=== PATIENT | female | born 2005 | race Caucasian/White ===

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

== ENCOUNTER 2025-03-10 08:45 | Outpatient (CLI) | payer OTHER, SELFPAY ==
--- NOTE | ~2025-03-10 | CT_ITS ---
CT Scan of the Chest without Contrast: Clinical Indication: Pulmonary nodule Technique: Contiguous sections were acquired throughout the chest without intravenous contrast. Dose reduction technique was used on this scan by utilizing automated exposure control and iterative recon struction technique. The dose-length product (DLP) was 216.79 mGy-cm. COMPARISON: 05/17/2024 Findings: Anterior mediastinal soft tissues most compatible with residual thymic tissue. No lymphadenopathy nubia dent. The mediastinal soft tissues otherwise appear normal. There is no evidence of pleural or pericardial effusion. There is consolidation with air bronchograms in the right middle lobe, somewhat more extensive as com pared to prior exam. Remainder of the lungs are clear. Images through the upper abdomen reveal no abnormalities. Impression: More extensive right middle lobe consolidation with air bronchograms. This could reflect chronic atel ectasis or other chronic pneumonia. Correlate clinically. Reviewed, dictated and finalized at [facility]. Impression: More extensive right middle lobe consolidation with air bronchograms. This coul d reflect chronic atelectasis or other chronic pneumonia. Correlate clinically.
== END 2025-03-10 08:46 | disposition home or self-care (01) ==
PROVIDERS: PCP Clinical Nurse Specialist; Visit Provider Clinical Nurse Specialist
DX: J18.1 Lobar pneumonia, unspecified organism (principal); R91.1 Solitary pulmonary nodule
CPT/HCPCS: 71250